=== PATIENT | female | born 1955 | race Caucasian/White ===

== ENCOUNTER 2016-10-07 20:54 | Inpatient (IN) | payer OTHER ==
[~2016-10-07] VITALS: Ht 157.5 cm; Wt 68.5 kg
[~2016-10-07 20:54] MED LIST: FLUT16H NASAL; IBUP-2070 PO; LORA10TA7 PO; METF500T4 PO; SIMV-260 PO
[2016-10-07 21:08] LABS: GLUCOSE,POINT OF CARE 192 MG/DL (70-110)
[2016-10-07] MEDS ORDERED: LISI-662 PO (21:24)
[2016-10-07] MEDS ORDERED: OMEP20 PO (21:24)
[2016-10-07] MEDS ORDERED: CARV25 PO (21:24)
[2016-10-07] MEDS ORDERED: AMLO-511 PO (21:24)
[2016-10-07 21:44] LABS: BASOPHILS # (AUTO) 0.04 K/uL (0.00-0.20); BASOPHILS % (AUTO) 0.9 % (0.0-2.0); EOSINOPHILS # (AUTO) 0.19 K/uL (0.00-0.70); EOSINOPHILS % (AUTO) 3.92 % (1.0-6.0); HEMATOCRIT 36.7 % (36-46); HEMOGLOBIN 11.4 g/dL (12.0-16.0); LYMPHOCYTES # (AUTO) 0.9 K/uL (1.0-4.8); MEAN CORPUSCULAR HEMOGLOBIN 23.4 pg (26.0-34.0); MEAN CORPUSCULAR HGB CONC 31.1 G/dL (31.0-37.0); MEAN CORPUSCULAR VOLUME 75 fL (80-100); MONOCYTES # (AUTO) 0.3 K/uL (0.1-1.0); MONOCYTES % (AUTO) 7.2 % (2.0-9.0); NEUTROPHILS # (AUTO) 3.3 K/uL (1.8-7.7); PLATELET COUNT (AUTO) 402 K/uL (150-450); RED BLOOD CELL COUNT(AUTO) 4.86 MIL/uL (4.00-5.20); WHITE BLOOD COUNT (AUTO) 4.8 K/uL (4.5-11.0)
[2016-10-07 21:54] LABS: ANION GAP 5 mmol/L (8-16); CALCIUM, TOTAL 8.3 mg/dL (8.8-10.5); CARBON DIOXIDE 32 mmol/L (22-29); CHLORIDE 103 mmol/L (98-107); CREATININE 0.88 mg/dL (0.60-1.30); GLOMERULAR FILTR. RATE CALC > 60 mL/min (>60); SODIUM SERUM 140 mmol/L (136-145); UREA NITROGEN, BLOOD 19 mg/dL (7-18)
[2016-10-07] MEDS ORDERED: INSLAN SQ (22:00)
[2016-10-07 22:03] LABS: RBC MORPHOLOGY COMMENT ABNORMAL RBC MORPH
[2016-10-07 22:13] LABS: B-TYPE NATRIURETIC PEPTIDE 2680 pg/mL (0-100)
[2016-10-07 22:16] LABS: APPEARANCE,URINE CLEAR (CLEAR); GLUCOSE, URINE (UA) 250 mg/dL (NEGATIVE); KETONES,URINE NEGATIVE (NEGATIVE); LEUKOCYTE ESTERASE ,URINE SMALL (NEGATIVE); OCCULT BLOOD,URINE SMALL (NEGATIVE); PROTEIN,URINE SEE CONFIRM (NEGATIVE)
[2016-10-07 22:20] LABS: ADD UA MICROSCOPIC YES
[2016-10-07 22:21] LABS: FINE GRANULAR CASTS,URINE 0-2 /LPF (None Seen); HYALINE CASTS, URINE 0-2 /LPF (None Seen); SQUAMOUS EPITHELIAL CELL,UR Few /LPF (None Seen); SULFOSALICYLIC ACID,URINE 4+ (Negative)
[2016-10-07 22:22] LABS: ALANINE AMINOTRANSFERASE 26 U/L (12-78); ALBUMIN 2.2 g/dL (3.4-5.0); ASPARTATE AMINOTRANSFERASE 22 U/L (15-37); BILIRUBIN,TOTAL 0.3 mg/dL (0.1-1.0); CREATINE KINASE MB 1.9 ng/mL (0-5); CREATINE KINASE, TOTAL 76 U/L (26-192); TOTAL PROTEIN, SERUM 6.5 g/dL (6.4-8.2)
[2016-10-07] MEDS ORDERED: FUROSEMIDE 40 MG/4 ML VIAL IVP ONE (23:15)
[2016-10-07] MEDS ORDERED: NITROGLYCERIN 2% (1 GM=INCH) PACKET TP ONE (23:15)
[2016-10-07] MEDS ORDERED: LEVOFLOXACIN 750 MG/D5% WATER 150 ML IV ONE (23:15)
[2016-10-08] VITALS (8 sets, daily range): BP systolic 114–179; BP diastolic 58–98
[2016-10-08] MEDS ORDERED: DiphenhydrAMINE HCL 50 MG/ML VIAL IVP ONE (00:30)
[2016-10-08] MEDS ORDERED: ONDANSETRON HCL 4 MG/2 ML VIAL IVP ONE (00:30)
[2016-10-08] MEDS ORDERED: NITROGLYCERIN 0.4 MG SUBLINGUAL TABLET #25 SL PRN (00:45)
[2016-10-08] MEDS ORDERED: MORPHINE SULFATE 2 MG/ML SYRINGE IVP PRN (00:45)
[2016-10-08] MEDS: HydrALAZINE HCL 20 MG/ML VIAL IVP PRN ×3 (01:10→15:58)
[2016-10-08] MEDS: ONDANSETRON HCL 4 MG/2 ML VIAL IVP PRN ×2 (03:47→22:24)
[2016-10-08] MEDS: DOCUSATE SODIUM 100 MG CAPSULE PO SCH (08:47)
[2016-10-08] MEDS: ASPIRIN 81 MG CHEWABLE TABLET PO SCH (08:48)
[2016-10-08] MEDS: FUROSEMIDE 40 MG/4 ML VIAL IVP SCH (08:49)
[2016-10-08] MEDS ORDERED: FUROSEMIDE 40 MG/4 ML VIAL IVP SCH (09:00)
[2016-10-08] MEDS ORDERED: DEXTROSE 50%-WATER 25 GM/50 ML SYRINGE IVP PRN (11:30)
[2016-10-08] MEDS: INSULIN ASPART 100 UNITS/ML SQ PRN ×2 (14:04→17:26)
[2016-10-08] MEDS: CARVEDILOL 25 MG TABLET PO SCH (19:41)
[2016-10-08] MEDS: SIMVASTATIN 20 MG TABLET PO SCH (19:41)
[2016-10-09 04:21] VITALS: BP 120/67
[2016-10-09] MEDS: INSULIN ASPART 100 UNITS/ML SQ PRN ×4 (05:31→21:00)
[2016-10-09 07:08] LABS: CALCIUM, TOTAL 7.9 mg/dL (8.8-10.5); CHOL/HDL RATIO 5.2 (3.9-5.7); CREATININE 1.73 mg/dL (0.60-1.30); MAGNESIUM 1.6 mg/dL (1.80-2.40); POTASSIUM 4.5 mmol/L (3.5-5.1)
[2016-10-09 07:19] VITALS: BP 159/77
[2016-10-09] MEDS: FUROSEMIDE 40 MG/4 ML VIAL IVP SCH (08:38)
[2016-10-09] MEDS: CARVEDILOL 25 MG TABLET PO SCH ×2 (08:39→20:37)
[2016-10-09] MEDS: ASPIRIN 81 MG CHEWABLE TABLET PO SCH (08:39)
[2016-10-09] MEDS: DOCUSATE SODIUM 100 MG CAPSULE PO SCH (08:39)
[2016-10-09] MEDS: AmLODIPine BESYLATE 5 MG TABLET PO SCH (08:41)
[2016-10-09 11:52] VITALS: BP 148/59
[2016-10-09 12:17] LABS: GLUCOSE,POINT OF CARE 111 MG/DL (70-110)
[2016-10-09 12:28] LABS: GLUCOSE COMMENT 1 Received Meds; GLUCOSE,POINT OF CARE 220 MG/DL (70-110)
[2016-10-09] MEDS ORDERED: MAGNESIUM SULFATE 2 GM in DEXTROSE 5%-WATER 50 ML IV ONE (13:30)
[2016-10-09] MEDS ORDERED: SIMV-261 PO (13:35)
[2016-10-09] MEDS ORDERED: SODIUM CHLORIDE 0.9% 100 ML ONE (14:15)
[2016-10-09 15:34] VITALS: BP 131/59
[2016-10-09 20:08] LABS: GLUCOSE,POINT OF CARE 234 MG/DL (70-110)
[2016-10-09 20:12] VITALS: BP 147/72
[2016-10-09] MEDS: SIMVASTATIN 20 MG TABLET PO SCH (20:37)
[2016-10-10] VITALS (7 sets, daily range): BP systolic 115–144; BP diastolic 53–68
[2016-10-10 06:51] LABS: ANION GAP 5 mmol/L (8-16); CALCIUM, TOTAL 7.8 mg/dL (8.8-10.5); CARBON DIOXIDE 31 mmol/L (22-29); CHLORIDE 100 mmol/L (98-107); CREATINE KINASE, TOTAL 41 U/L (26-192); GLOMERULAR FILTR. RATE CALC 31 mL/min (>60); POTASSIUM 4.4 mmol/L (3.5-5.1); SODIUM SERUM 136 mmol/L (136-145); UREA NITROGEN, BLOOD 38 mg/dL (7-18)
[2016-10-10 07:00] LABS: B-TYPE NATRIURETIC PEPTIDE 953 pg/mL (0-100)
[2016-10-10 07:23] LABS: GLUCOSE COMMENT 1 Received Meds; GLUCOSE,POINT OF CARE 226 MG/DL (70-110)
[2016-10-10 08:17] LABS: GLUCOSE COMMENT 1 Received Meds; GLUCOSE,POINT OF CARE 148 MG/DL (70-110)
[2016-10-10] MEDS: ASPIRIN 81 MG CHEWABLE TABLET PO SCH (08:39)
[2016-10-10] MEDS: AmLODIPine BESYLATE 5 MG TABLET PO SCH (08:39)
[2016-10-10] MEDS: CARVEDILOL 25 MG TABLET PO SCH ×2 (08:39→20:27)
[2016-10-10] MEDS: DOCUSATE SODIUM 100 MG CAPSULE PO SCH (08:39)
[2016-10-10] MEDS: INSULIN ASPART 100 UNITS/ML SQ PRN ×3 (11:57→20:36)
[2016-10-10] MEDS: SIMVASTATIN 20 MG TABLET PO SCH (20:27)
[2016-10-11] VITALS (15 sets, daily range): BP systolic 135–190; BP diastolic 58–93
[2016-10-11 07:03] LABS: BASOPHILS # (AUTO) 0.05 K/uL (0.00-0.20); EOSINOPHILS # (AUTO) 0.22 K/uL (0.00-0.70); EOSINOPHILS % (AUTO) 4.44 % (1.0-6.0); HEMATOCRIT 33.4 % (36-46); HEMOGLOBIN 10.7 g/dL (12.0-16.0); LYMPHOCYTES # (AUTO) 0.9 K/uL (1.0-4.8); LYMPHOCYTES % (AUTO) 18.1 % (22.0-44.0); MEAN CORPUSCULAR HEMOGLOBIN 23.8 pg (26.0-34.0); MEAN CORPUSCULAR HGB CONC 32.1 G/dL (31.0-37.0); MEAN CORPUSCULAR VOLUME 74 fL (80-100); MONOCYTES # (AUTO) 0.5 K/uL (0.1-1.0); MONOCYTES % (AUTO) 9.3 % (2.0-9.0); NEUTROPHILS # (AUTO) 3.3 K/uL (1.8-7.7); NEUTROPHILS % (AUTO) 67.1 % (40.0-70.0); PLATELET COUNT (AUTO) 322 K/uL (150-450); RED BLOOD CELL COUNT(AUTO) 4.52 MIL/uL (4.00-5.20); RED CELL DISTRIBUTION WIDTH 15.2 % (11.5-14.5)
[2016-10-11 07:27] LABS: GLUCOSE COMMENT 1 Received Meds; GLUCOSE,POINT OF CARE 206 MG/DL (70-110)
[2016-10-11] MEDS: DOCUSATE SODIUM 100 MG CAPSULE PO SCH (09:00)
[2016-10-11] MEDS: ASPIRIN 81 MG CHEWABLE TABLET PO SCH (09:00)
[2016-10-11] MEDS: ACETYLCYSTEINE 20% 200 MG/ML 4 ML ORAL SOLUTION PO SCH ×2 (09:00→20:55)
[2016-10-11] MEDS: CARVEDILOL 25 MG TABLET PO SCH ×2 (09:14→20:55)
[2016-10-11] MEDS: AmLODIPine BESYLATE 5 MG TABLET PO SCH (09:14)
[2016-10-11 09:28] LABS: CALCIUM, TOTAL 8.3 mg/dL (8.8-10.5); CREATININE 1.57 mg/dL (0.60-1.30); POTASSIUM 4.6 mmol/L (3.5-5.1)
[2016-10-11 09:32] LABS: PHOSPHORUS 3.9 mg/dL (2.5-4.9)
[2016-10-11 09:38] LABS: GLUCOSE COMMENT 1 Received Meds; GLUCOSE,POINT OF CARE 162 MG/DL (70-110)
[2016-10-11 10:32] LABS: RBC MORPHOLOGY COMMENT ABNORMAL RBC MORPH
[2016-10-11] MEDS ORDERED: IOHEXOL 300 MG/ML 150 ML VIAL ONE (14:18)
[2016-10-11] MEDS ORDERED: LIDOCAINE HCL/PF 1% 30 ML VIAL ONE (14:18)
[2016-10-11] MEDS ORDERED: SODIUM BICARBONATE 50 MEQ/50 ML VIAL ONE (14:18)
[2016-10-11] MEDS ORDERED: HEPARIN SODIUM 1000 UNITS/NS 1,000 ML ONE (14:18)
[2016-10-11] MEDS ORDERED: FentaNYL CITRATE-PF 100 MCG/2 ML VIAL ONE (14:37)
[2016-10-11] MEDS ORDERED: MIDAZOLAM HCL 2 MG/2 ML VIAL ONE (14:37)
[2016-10-11] MEDS ORDERED: HEPARIN SODIUM 1000 UNITS/NS 1,000 ML IARTER ONE (14:38)
[2016-10-11] MEDS ORDERED: SODIUM CHLORIDE 0.9% 500 ML IV ONE (14:38)
[2016-10-11] MEDS ORDERED: IOHEXOL 300 MG/ML 100 ML VIAL ONE (14:43)
[2016-10-11] MEDS ORDERED: IOHEXOL 300 MG/ML 150 ML VIAL IARTER ONE (14:45)
[2016-10-11] MEDS ORDERED: 0.9% SODIUM CHLORIDE 10 ML SYRINGE IVP PRN (14:45)
[2016-10-11] MEDS ORDERED: MIDAZOLAM HCL 2 MG/2 ML VIAL IVP ONE (14:45)
[2016-10-11] MEDS ORDERED: FentaNYL CITRATE-PF 100 MCG/2 ML VIAL IVP ONE (14:45)
[2016-10-11] MEDS ORDERED: LIDOCAINE 1% 30 ML/SOD BICARB 8.4% 4 ML SQ ONE (14:45)
[2016-10-11] MEDS ORDERED: SODIUM BICARBONATE 150 MEQ in DEXTROSE 5%-WATER 850 ML IV ONE (15:15)
[2016-10-11] MEDS: HydrALAZINE HCL 20 MG/ML VIAL IVP PRN (17:00)
[2016-10-11 17:22] LABS: GLUCOSE,POINT OF CARE 230 MG/DL (70-110)
[2016-10-11] MEDS: SIMVASTATIN 20 MG TABLET PO SCH (20:55)
[2016-10-11] MEDS: INSULIN ASPART 100 UNITS/ML SQ PRN (20:56)
[2016-10-11] MEDS: ONDANSETRON HCL 4 MG/2 ML VIAL IVP PRN (23:09)
[2016-10-12 04:11] VITALS: BP 151/75
[2016-10-12 06:47] LABS: HEMOGLOBIN A1C 9.2 % (4.5-6.2)
[2016-10-12 06:57] LABS: CREATININE 1.2 mg/dL (0.60-1.30); MAGNESIUM 1.8 mg/dL (1.80-2.40); PHOSPHORUS 3.8 mg/dL (2.5-4.9); POTASSIUM 4.1 mmol/L (3.5-5.1)
[2016-10-12 07:42] VITALS: BP 161/78
[2016-10-12] MEDS ORDERED: CHOLECALCIFEROL (VIT D3) 1,000 UNITS TABLET PO SCH (09:00)
[2016-10-12] MEDS ORDERED: FUROSEMIDE 40 MG/4 ML VIAL IVP SCH (09:00)
[2016-10-12 09:27] LABS: GLUCOSE,POINT OF CARE 127 MG/DL (70-110)
[2016-10-12 09:27] LABS: GLUCOSE COMMENT 1 Received Meds; GLUCOSE,POINT OF CARE 222 MG/DL (70-110)
[2016-10-12 09:28] LABS: GLUCOSE COMMENT 1 Received Meds; GLUCOSE,POINT OF CARE 316 MG/DL (70-110)
[2016-10-12 09:28] LABS: GLUCOSE,POINT OF CARE 212 MG/DL (70-110)
[2016-10-12 09:31] LABS: GLUCOSE,POINT OF CARE 172 MG/DL (70-110)
[2016-10-12] MEDS: DOCUSATE SODIUM 100 MG CAPSULE PO SCH (09:56)
[2016-10-12] MEDS: CARVEDILOL 25 MG TABLET PO SCH (09:56)
[2016-10-12] MEDS: AmLODIPine BESYLATE 5 MG TABLET PO SCH (09:56)
[2016-10-12] MEDS: ASPIRIN 81 MG CHEWABLE TABLET PO SCH (09:56)
[2016-10-12 10:59] VITALS: BP 143/67
[2016-10-12] MEDS: INSULIN ASPART 100 UNITS/ML SQ PRN (12:43)
[2016-10-12 15:10] VITALS: BP 144/66
[2016-10-13 07:06] LABS: COMPLEMENT C3 114 mg/dL (82-167); COMPLEMENT C4 41 mg/dL (14-44)
[2016-10-13 08:48] LABS: IGG (IMMUNOFIXATION) 831 mg/dL (700-1600)
[2016-10-13 10:49] LABS: ALBUMIN/GLOBULIN RAITO (PEP) 0.8 (0.7-1.7); ALPHA-1 GLOBULINS(PEP) 0.2 g/dL (0.0-0.4); ALPHA-2 GLOBULINS (PEP) 0.8 g/dL (0.4-1.0); BETA (PEP) 0.9 g/dL (0.7-1.3); GAMMA GLOBULINS (PEP) 0.7 g/dL (0.4-1.8); GLOBULIN TOTAL (PEP) 2.7 g/dL (2.2-3.9); M-SPIKE (PEP) Not Observed g/dL (Not Observed); TOTAL PROTEIN 4.9 g/dL (6.0-8.5)
[2016-10-14 13:07] LABS: ALBUMIN URINE (ELP24) 56.4 %; ALPHA-1 URINE (ELP24) 9.1 %; ALPHA-2 URINE(ELP24) 7.6 %; BETA URINE(ELP24) 15.5 %; GAMMA URINE(ELP24) 11.4 %; TOTAL PROTEIN URINE 145.7 mg/dL (Not Estab.)
[2016-10-16 00:12] LABS: GLUCOSE,POINT OF CARE 237 MG/DL (70-110)
[2016-10-16 00:12] LABS: GLUCOSE,POINT OF CARE 138 MG/DL (70-110)
[2016-10-16 00:12] LABS: GLUCOSE,POINT OF CARE 176 MG/DL (70-110)
== END 2016-10-12 17:40 | disposition left against medical advice (07) | DRG 192 ==
LOC: EMS 20:56 → 5S 23:30 → 5N 10-08 20:45
PROVIDERS: ADMIT Internal Medicine; ATTEND Internal Medicine
PROC: 4A023N8 Measurement of Cardiac Sampling and Pressure, Bilateral, Percutaneous Approach (ICD-10-PCS; principal; 2016-10-11)
PROC: B2111ZZ Fluoroscopy of Multiple Coronary Arteries using Low Osmolar Contrast (ICD-10-PCS; 2016-10-11)
PROC: B2151ZZ Fluoroscopy of Left Heart using Low Osmolar Contrast (ICD-10-PCS; 2016-10-11)
DX: I25.10 Atherosclerotic heart disease of native coronary artery without angina pectoris (principal); I50.23 Acute on chronic systolic (congestive) heart failure; E43 Unspecified severe protein-calorie malnutrition; I42.0 Dilated cardiomyopathy; E11.21 Type 2 diabetes mellitus with diabetic nephropathy; E55.9 Vitamin D deficiency, unspecified; N39.0 Urinary tract infection, site not specified; I13.0 Hypertensive heart and chronic kidney disease with heart failure and stage 1 through stage 4 chronic kidney disease, or unspecified chronic kidney disease; E78.2 Mixed hyperlipidemia; I25.5 Ischemic cardiomyopathy; E11.22 Type 2 diabetes mellitus with diabetic chronic kidney disease; E83.51 Hypocalcemia; N18.9 Chronic kidney disease, unspecified; E78.00 Pure hypercholesterolemia, unspecified; D50.9 Iron deficiency anemia, unspecified; F06.4 Anxiety disorder due to known physiological condition; E78.5 Hyperlipidemia, unspecified; K59.00 Constipation, unspecified; Z90.49 Acquired absence of other specified parts of digestive tract; Z91.14 Patient's other noncompliance with medication regimen; Z79.4 Long term (current) use of insulin; Z79.899 Other long term (current) drug therapy; Z68.27 Body mass index [BMI] 27.0-27.9, adult; Z91.19 Patient's noncompliance with other medical treatment and regimen; Z79.84 Long term (current) use of oral hypoglycemic drugs
CPT/HCPCS: 74010; 81050; 82306; 82575; 82784; 82962; 83036; 83721; 83735; 83970; 84100; 84155; 84156; 84165; 84166; 86160; 86162; 86334; 87040; 87086; 93005; 93306; 93460; 96365; 96374; 96375; 99285; J0360; J1200; J1644; J1940; J1956; J2250; J2405; J3010; J3475; J3490; J7050; J7060; Q9967

== ENCOUNTER 2016-11-23 09:16 | Emergency (ER) | payer OTHER ==
[~2016-11-23 09:16] MED LIST changes: +AMLO-511 PO; +CARV25 PO; +EPINEPHrine 1:10,000 [1 MG/10 ML] SYRINGE IVP ONE; +INSLAN SQ; +LISI-662 PO; +OMEP20 PO; -SIMV-260 PO; +SIMV-261 PO
[2016-11-23 09:35] VITALS: BP 153/47
== END 2016-11-23 11:03 | disposition expired ==
LOC: EMS 09:17
DX: I46.9 Cardiac arrest, cause unspecified (principal); E11.29 Type 2 diabetes mellitus with other diabetic kidney complication; N28.9 Disorder of kidney and ureter, unspecified; I50.9 Heart failure, unspecified; E78.00 Pure hypercholesterolemia, unspecified; Z79.4 Long term (current) use of insulin
CPT/HCPCS: 31500; 92950; 99291; J0171